=== PATIENT | male | born 1995 ===

== ENCOUNTER → 2020-07-12 08:36 | Outpatient (CLI) | payer SELFPAY ==
[2020-07-14 22:02] LABS: Chlamydia trachomatis NAA Negative (Negative); Neisseria gonorrhoeae NAA Negative (Negative)
== END ==
PROVIDERS: PCP Physician Assistant; Visit Provider Physician Assistant
DX: Z11.3 Encounter for screening for infections with a predominantly sexual mode of transmission (principal); Z11.8 Encounter for screening for other infectious and parasitic diseases
CPT/HCPCS: 87491; 87591